=== PATIENT | male | born 1940 | race Two or more races ===

== ENCOUNTER 2022-04-25 23:16 | Emergency (ER) | payer OTHER ==
[~2022-04-25] VITALS: Ht 177.8 cm; Wt 81.6 kg
--- NOTE | 2022-04-26 00:40 | NUR ---
HOWARD Greenberg FROM [facility] FOR ABNORMAL EKG OF AFIB WITH HX OF AFIB. PT DENIES ANY C/P SOB OR DINZZINES. PT AWAKE AND ALERT BVREATHING EVEN AND UNLABORED. PLACED ON MONITOR AND V/S WNL.
[2022-04-26 01:45] LABS: BASOPHILS % (AUTO) 0.2 % (0.0-2.0); HEMATOCRIT 40 % (39-51); HEMOGLOBIN 13.2 g/dL (13.5-17.5); LYMPHOCYTES # (AUTO) 1.5 K/uL (0.8-4.8); LYMPHOCYTES % (AUTO) 16.7 % (20.0-44.0); MEAN CORPUSCULAR HGB CONC 33 g/dl (31.0-36.0); MEAN CORPUSCULAR VOLUME 99 fL (80-96); MONOCYTES # (AUTO) 1.2 K/uL (0.1-1.30); MONOCYTES % (AUTO) 13.2 % (2.0-12.0); NEUTROPHILS # (AUTO) 6.2 K/uL (1.8-8.9); NEUTROPHILS % (AUTO) 68.9 % (43.0-81.0); PLATELET COUNT (AUTO) 264 K/uL (150-450); RED BLOOD CELL COUNT(AUTO) 3.99 MIL/uL (4.5-6.0)
[2022-04-26 01:59] LABS: CALCIUM, SERUM 8.7 mg/dL (8.5-10.1); CARBON DIOXIDE 28 mmol/L (21-32); CHLORIDE 98 mmol/L (98-107); CREATININE 0.8 mg/dL (0.6-1.3); GLUCOSE 98 mg/dL (74-106); POTASSIUM 4.2 mmol/L (3.5-5.1); SODIUM SERUM 131 mmol/L (136-145); UREA NITROGEN, BLOOD 19 mg/dL (7-18)
[2022-04-26 02:13] LABS: ALANINE AMINOTRANSFERASE 31 U/L (12-78); ALBUMIN 3.3 g/dL (3.4-5.0); ALKALINE PHOSPHATASE 83 U/L (46-116); ASPARTATE AMINOTRANSFERASE 28 U/L (15-37); BILIRUBIN,DIRECT 0.3 mg/dL (0.0-0.2); BILIRUBIN,TOTAL 0.8 mg/dL (0.2-1.0); TOTAL PROTEIN, SERUM 7.2 g/dL (6.4-8.2)
--- NOTE | 2022-04-26 04:30 | NUR ---
CALLED SNF FOR REPORT. CALL GOES TO VOICEMAIL.
--- NOTE | 2022-04-26 05:16 | NUR ---
ATTEMPTED TO CALL REPORT TO SNF. CALL GOES TO STRAIGHT TO [facility]ICEMAIL.
--- NOTE | 2022-04-26 05:33 | NUR ---
INFORMED ANISH PT TO DC TO [facility]. ATTEMPTED TO CALL SNF FOR REPORT. CALL GOES TO STRAIGHT TO VOICEMAIL.
--- NOTE | 2022-04-26 05:33 | NUR ---
TRANSFER TO [facility] ER W/ [facility] ETA 90-120 MINUTES
--- NOTE | 2022-04-26 07:25 | NUR ---
RECEVED PT FROM [facility] IN BED AWAKE CONFUSED WATING For [facility] to be transfer
--- NOTE | 2022-04-26 07:40 | NUR ---
RESTING AND COMFORTABLE AT THIS TIME NO PAIN
--- NOTE | 2022-04-26 08:32 | NUR ---
Patient discharged to home in stable condition. Written and verbal after care instructions given. Patient verbalizes understanding of instruction.
--- NOTE | 2022-04-26 08:35 | NUR ---
TRANSFER BY EMT STABLE CONDITION VS STABLE
--- NOTE | 2022-04-26 08:35 | NUR ---
ATTEMPET TO CALLED [facility] NO ANSWER UNABLE TO GT TOUCH
[2022-04-26 08:52] VITALS: BP 160/101
== END 2022-04-26 08:53 ==
LOC: ER 23:18
DX: I48.91 Unspecified atrial fibrillation (principal); I10 Essential (primary) hypertension; E78.5 Hyperlipidemia, unspecified; K21.9 Gastro-esophageal reflux disease without esophagitis; F32.9 Major depressive disorder, single episode, unspecified; Z86.69 Personal history of other diseases of the nervous system and sense organs
CPT/HCPCS: 36415; 71045-TC; 80048-TC; 80076-TC; 84484-TC; 85025-TC